=== PATIENT | female | born 1955 ===

== ENCOUNTER 2024-10-29 16:32 | Emergency (ER) | payer BC, SELFPAY ==
[2024-10-29 16:44] VITALS: BP 125/59; PULSE 96; RESP 18; TEMP 36.4; O2SAT 97
--- NOTE | 2024-10-29 16:45 | DI.RAD_ITS ---
Exam(s) XR SHOULDER RT COMPLETE 2+V EXAM: XR SHOULDER RT COMPLETE 2+V CLINICAL HISTORY: Fell skiing, heard pop. TECHNIQUE: 2D digital imaging was performed of the right shoulder. Four images were obtained. AP, Grashey and Y views were obtained. COMPARISON: No exams were available for comparison FINDINGS: BONES: There is an acute comminuted fracture of the proximal humerus. There is a transverse componen t through the surgical neck with almost 1 cm medial displacement of the humeral shaft relative to the humeral head. There is impaction of the fracture noted. There is also a comminuted component of th e fracture which extends to involve the greater tuberosity. This component is nondisplaced. No bony destructive lesion is seen. JOINTS: No dislocation present. The acromioclavicular joint is unremarkable. SOFT TISSUE: There is soft tissue swelling around the shoulder. IMPRESSION: Comminuted, displaced and impacted fracture involving the proximal right humerus as described above. DATA REPOSITORY: RADIATION DOSE DELIVERED:
[2024-10-29] MEDS: Acetaminophen 500 MG TAB 1000 MG PO (18:13)
--- NOTE | 2024-10-29 19:35 | ED.GENADUL_ITS ---
Discharge Plan Disposition Patient Disposition: Home Condition: Stable Discharge Details Clinical Impression: Fracture of proximal end of right humerus Primary Care Provider: Unknown,Unknown ED Provider: Madonna Mejias Home Meds and New Rx's Prescriptions: No Action ferrous sulfate [Feosol] 325 mg (65 mg iron) tablet 325 mg PO QDAY Discharge Instructions Instructions: Upper Arm Fracture ED Additional Instructions: You were seen in the emergency department today for evaluation of a shoulder/arm injury after a fall, and were found to have a fracture of the upper part of your humerus. In our department you do full physical examination performed and had an x-ray, which was put on a disk for you to take to your home doctor when you return from your trip. You were placed in a sling which will act as the splint for your injury and should be worn anytime you are up and about. You can take it off if your arm supported, such as when you are sleeping in bed. Ple ase use Tylenol and ibuprofen for management of pain, and ice for swelling. I also provided you with a short course of oral morphine for breakthrough pain, please use this medication with caution as it can cause sleepiness, and should not be taken if you need to drive. You need to be seen by an orthopedic doctor for reassessment in the next 1 to 2 weeks. Your primary care provider can offer you suggestions of providers in your area. Thank you for allowing us to be part of your care. HPI General Mode of arrival: ambulatory . Date/Time Provider Initiated Documentation: 10/29/24 16:54 . Limitations to Documentation: no limitations . Information obtained by: patient and family . HPI Narrative: HPI: This is a 69-year-old [id number] female patient without significant past medical history presenting for evaluation after a fall. The patient was cross-country skiing and accidentally ended up on an ungroomed trail, which was extremely icy. She fell, landing on her left shoulder. Did not strike her head or lose consciousness, was in her normal state of health prior to this event. She is experiencing pain just distal to her right shoulder, does feel some subjective decreased sensation to the hypothenar aspect of her hand, but is not experiencing sensory loss or tingling. Full strength otherwise distal to this injury reported, patient resides in [place] and is returning home tomorrow. Exam: Gen: Awake and alert, in no apparent distress HEENT: Non-icteric sclera Neck: Supple Lungs: No apparent respiratory distress, normal respiratory effort. CV: Appears well perfused, heart is regular rate and rhythm, strong distal pulses Abdomen: Non-distended MSK: Moves 4 extremities without apparent limitation in ROM, with the exception of the right upper extremity. She has no clavicle tenderness or deformity, but does have tenderness of the proximal humerus region with some swelling, no overlying skin breaks. The right upper extremity is otherwise without tenderness or deformity on examination of the elbow, wrist, anatomical snuffbox, and hand. Her neurovascular examination distal to this injury is intact, capillary refill is brisk Skin: Visualized skin without rashes, cyanosis. Neuro: Normal Gait, no obvious focal deficits or facial asymmetry. Speaks in full, clear sentences. Psych: Appropriate for situation. MDM: This is a 69-year-old female patient presenting for evaluation of a traumatic left shoulder injury after a ski fall. Differential includes but is not limited to fracture, dislocation, sprain/strain, contusion. Patient was provided with Tylenol and we will obtain x-ray imaging of the affected right shoulder. ED Course: I reviewed the patient's x-ray, which shows a comminuted and impacted proximal humerus fracture of the right side, for which the patient was placed in a sling. I recommended that she reach out to her care providers at home so that she can be evaluated by orthopedics in the next 1 to 2 weeks to determine if she is appropriate for nonoperative management, and for referral to physical therapy. I recommended conservative management with Tylenol, ibuprofen, ice and rest, and at this time, the patient has had a full medical evaluation and is safe for discharge to home. They are hemodynamically stable, ambulatory, and tolerating PO. They are understanding of the follow-up plan and return precauti ons. They left our facility without incident. Madonna Mejias MD Related Data Home Medications ?Medication ?Instructions ?Recorded ?Confirmed ferrous sulfate 325 mg (65 mg 325 mg PO QDAY 10/29/24 10/29/24 iron) tablet (Feosol) Allergies Allergy/AdvReac Type Severity Reaction Status Date / Time No Known Allergies Allergy Unverified 10/29/24 16:49 General Stated Complaint: Orthopedic KVEIN: 4 Course Vital Signs Vital signs: Vital Signs Temperature 36.4 C 10/29/24 16:44 Pulse 96 H 10/29/24 16:44 Respiratory Rate 18 10/29/24 16:44 Blood Pressure 125/59 L 10/29/24 16:44 Pulse Oximetry 97 10/29/24 16:44 Temperature 36.4 C 10/29/24 16:44 Temperature Source Tympanic 10/29/24 16:44 Pulse 96 H 10/29/24 16:44 Respiratory Rate 18 10/29/24 16:44 Blood Pressure 125/59 L 10/29/24 16:44 Blood Pressure Position Sitting 10/29/24 16:44 Pulse Oximetry 97 10/29/24 16:44 Oxygen Delivery Method Room Air 10/29/24 16:44 Oxygen Flow Rate 0 10/29/24 16:44 Pain Level 0 10/29/24 16:44 Medical Decision Making Quality:SDOH Health Related Social Needs: No Data to Display PFSH All Active Problems (Updated 10/29/24 @ 19:37 by Madonna Mejias MD) Fracture of proximal end of right humerus (Acute) Social History Smoking/Tobacco Use Status: Never Smoking risk assessment performed?: Yes Alcohol Intake: never Drug use: Never Substance use type: does not use Do you feel safe at home: Yes Do you feel safe in your relationship?: Yes
== END 2024-10-29 20:04 | disposition home or self-care (01) ==
PROVIDERS: Emergency Provider Emergency Medicine
DX: S42.221A 2-part displaced fracture of surgical neck of right humerus, initial encounter for closed fracture (principal); W00.0XXA Fall on same level due to ice and snow, initial encounter; Y93.24 Activity, cross country skiing; Y92.838 Other recreation area as the place of occurrence of the external cause
CPT/HCPCS: 99283; 73030